=== PATIENT | male | born 1940 | race Caucasian/White ===

== ENCOUNTER → 2017-03-22 | Outpatient (CLI) | payer MEDICARE, OTHER ==
--- NOTE | 2017-03-22 15:59 | US ---
EXAMINATION: Limited pelvic ultrasound HISTORY: Swelling COMPARISON: None TECHNIQUE: Grayscale and color Doppler images obtained of the pelvis within the region of concern. FINDINGS: There is no abnormal subcutaneous mass or fluid collection. No abnormal color Doppler flow . No skin thickening. IMPRESSION: No sonographic abnormality is noted within the lower right pelvic region, in the area of concern.
== END ==
LOC: MW.US 13:14
PROVIDERS: ATTEND Nurse Practitioner Family
DX: R60.9 Edema, unspecified (principal)
CPT/HCPCS: 76857; 76857-26

== ENCOUNTER → 2017-04-01 | Outpatient (CLI) | payer MEDICARE, OTHER | LOC: MW.CHGS 08:00 | PROVIDERS: ATTEND Surgery | DX: K40.90 Unilateral inguinal hernia, without obstruction or gangrene, not specified as recurrent (principal) | CPT/HCPCS: 99203 ==

== ENCOUNTER 2017-06-17 06:25 | Day surgery (SDC) | payer MEDICARE, OTHER ==
[~2017-06-17 06:25] MED LIST: Lactated Ringers 1,000 ML IV SCH; Sodium Chloride 0.9% 10 ML Syringe FLUSH PRN; Sodium Chloride 0.9% 2.5 ML Syringe FLUSH PRN; ceFAZolin 2 GM in Premix Bag 1 BAG IV ONE; ceFAZolin 2 GM in Premix Bag 1 BAG IV SCH
[2017-06-17] MEDS ORDERED: Bupivacaine 0.5% 10 ML SDV ONE (07:14)
[2017-06-17] MEDS ORDERED: ceFAZolin 1 GM Vial ONE (07:15)
--- NOTE | 2017-06-17 07:31 | PCM.PREANE ---
Preanesthetic Assessment - Anesthesia/Transfusion/Family Hx Anesthesia History: Prior Anesthesia Without Reaction Family History of Anesthesia Reaction: No Transfusion History: No Prior Transfusion(s) - Review of Systems General: No Symptoms Pulmonary: Shortness of Breath Cardiovascular: No Symptoms Gastrointestinal: No Symptoms Neurological: No Symptoms Other: Reports: Easy Bleeding - Physical Assessment NPO Status Date: 06/16/17 NPO Status Time: 18:00 O2 Sat by Pulse Oximetry: 96 Respiratory Rate: 16 Vital Signs: Last Vital Signs Temp 36.5 C 06/17/17 06:27 Pulse 57 L 06/17/17 06:27 Resp 16 06/17/17 06:27 BP 125/73 06/17/17 06:27 Pulse Ox 96 06/17/17 06:27 Height: 1.69 m Weight: 68.946 kg ASA Class: 3 Mental Status: Alert & Oriented x3 Airway Class: Mallampati = 2 Dentition: Reports: Partial ROM/Head Extension: Full Lungs: Clear to Auscultation, Normal Respiratory Effort Cardiovascular: Regular Rate, Regular Rhythm - Allergies Allergies/Adverse Reactions: Allergies Allergy/AdvReac Type Severity Reaction Status Date / Time Tetanus Vaccines and Toxoid Allergy throat Verified 05/30/17 08:49 swells - Anesthesia Plan Pre-Op Medication Ordered: None - Acknowledgements Anesthesia Type Planned: Spinal Pt an Appropriate Candidate for the Planned Anesthesia: Yes Alternatives and Risks of Anesthesia Discussed w Pt/Guardian: Yes Pt/Guardian Understands and Agrees with Anesthesia Plan: Yes PreAnesthesia Questionnaire HEENT History: Reports: Other (See Below) Other HEENT History: reading glasses, top partial Respiratory History: Reports: COPD, Other (See Below) Other Respiratory History: uses O2 at night Musculoskeletal History: Reports: Fracture Other Musculoskeletal History: hx fx back and ribs Oncologic (Cancer) History: Reports: Basal Cell Carcinoma Other Oncologic History: basal cell from inner lip - Past Surgical History Head Surgeries/Procedures: Reports: None HEENT Surgical History: Reports: Cataract Surgery, Oral Surgery Other HEENT Surgeries/Procedures: basal cell carcinoma removed from inner lip - SUBSTANCE USE Smoking Status *Q: Former Smoker Recreational Drug Use History: No - HOME MEDS Home Medications: Home Meds Albuterol Sulfate 1 dose NEB BID 05/30/17 [History] Calcium Carb/Magnesium Oxid/D3 [Calcium Magnesium + D] 1 tab PO DAILY 05/30/17 [ History] Docusate Sodium 1 tab PO BID 05/30/17 [History] Flaxseed Oil 1 tab PO ASDIRECTED 05/30/17 [History] Fluticasone/Salmeterol [Advair Diskus 250-50] 1 inh INH ASDIRECTED 05/30/17 [ History] Gluc HCl/Csa/Eladio Hy/Hyalur Ac [Glucosamine Chondroitin] 1 tab PO DAILY [History] Melatonin 3 mg PO BEDTIME PRN 05/30/17 [History] Multimineral Plus 1 tab PO DAILY 05/30/17 [History] Sennosides [Senna Laxative] 1 tab PO ASDIRECTED 05/30/17 [History] Umeclidinium [place] [Incruse Ellipta] 2 puff INH ASDIRECTED 05/30/17 [History] Incruse Ellipta 62.5 mg INH DAILY 06/14/17 [History] Warfarin Sodium 1 mg PO DAILY 06/14/17 [History] Warfarin Sodium 5 mg PO DAILY 06/14/17 [History] - CURRENT (IN HOUSE) MEDS Current Meds: Current Medications Lactated Ringer's (Ringers, Lactated) 1,000 mls @ 125 mls/hr IV ASDIRECTED [facility] Last Admin: 06/17/17 06:50 Dose: 125 mls/hr Cefazolin Sodium/Dextrose 2 gm (/ Premix) 50 mls @ 100 mls/hr IV ONETIME CARLOS Sodium Chloride (Saline Flush) 10 ml FLUSH ASDIRECTED PRN PRN Reason: Keep Vein Open Sodium Chloride (Saline Flush) 2.5 ml FLUSH ASDIRECTED PRN PRN Reason: Keep Vein Open Discontinued Medications Bupivacaine HCl (Sensorcaine-Mpf 0.5%) Confirm Administered Dose 20 ml .ROUTE .STK-MED ONE Stop: 06/17/17 07:15 Cefazolin Sodium (Ancef) Confirm Administered Dose 1 gm .ROUTE .STK-MED ONE Stop: 06/17/17 07:16 Lactated Ringer's (Ringers, Lactated) 1,000 mls @ 125 mls/hr IV ASDIRECTED [facility] Cefazolin Sodium/Dextrose 2 gm (/ Premix) 50 mls @ 100 mls/hr IV ONETIME ONE Stop: 05/31/17 16:34 Sodium Chloride (Saline Flush) 10 ml FLUSH ASDIRECTED PRN PRN Reason: Keep Vein Open Sodium Chloride (Saline Flush) 2.5 ml FLUSH ASDIRECTED PRN PRN Reason: Keep Vein Open
[2017-06-17] MEDS ORDERED: Phenylephrine/Normal Saline 100 MCG/ML 10 ML Syringe ONE (08:31)
[2017-06-17] MEDS ORDERED: Midazolam 1 MG/ML 2 ML SDV ONE (08:39)
[2017-06-17] MEDS ORDERED: fentaNYL 100 MCG/2 ML SDV ONE (08:39)
[2017-06-17] MEDS ORDERED: Propofol 200 MG/20 ML SDV ONE (08:39)
[2017-06-17] MEDS ORDERED: Lidocaine 2% 5 ML SDV ONE (08:39)
[2017-06-17] MEDS ORDERED: Ondansetron 4 MG/2 ML SDV ONE (09:07)
[2017-06-17] MEDS ORDERED: fentaNYL 100 MCG/2 ML SDV IVPUSH PRN (09:13)
[2017-06-17] MEDS ORDERED: Ondansetron 4 MG/2 ML SDV IVPUSH ONE (09:13)
[2017-06-17] MEDS ORDERED: Acetaminophen 1,000 MG in Premix Bag 1 BAG IV ONE (09:15)
--- NOTE | 2017-06-17 09:46 | PCM.POSTAN ---
POST ANESTHESIA ASSESSMENT - MENTAL STATUS Mental Status: Alert, Oriented - RESPIRATORY Respiratory Status: Respiratory Rate WNL, Airway Patent, O2 Saturation Stable - CARDIOVASCULAR CV Status: Pulse Rate WNL, Blood Pressure Stable - GASTROINTESTINAL GI Status: No Symptoms - POST OP HYDRATION Hydration Status: Adequate & Stable
--- NOTE | 2017-06-17 12:31 | OR ---
SURGEON: Matias London M.D. DATE OF PROCEDURE: 06/17/2017 OPERATION PERFORMED: Repair of right inguinal hernia. ANESTHESIA: Spinal. ASA CLASSIFICATION: III. PREOPERATIVE DIAGNOSIS: Reducible right inguinal hernia. POSTOPERATIVE DIAGNOSIS: Reducible right inguinal hernia. ESTIMATED BLOOD LOSS: 10 mL. INTRAOPERATIVE FLUID REPLACEMENT: 950 mL of crystalloid. DESCRIPTION OF PROCEDURE: The patient was taken to the operating room and initially placed on the operating table in the supine position. Surgical site had been marked prior to the patient entering the operating room. Time-out was called for appropriate identification of the patient and procedure. Spinal anesthesia was induced. The patient was again returned to the supine position. The abdomen was then prepped with DuraPrep solution. Sterile drapes were applied. The skin incision was marked out in the right inguinal crease. The skin incision was then made and deepened through the subcutaneous tissue with electrocautery. Bleeding sites were electrocoagulated. The external oblique fascia was extremely attenuated. The cord was mobilized and encircled with a Gorge drain. The hernia sac was identified and was able to be dissected away from the cord and reduced. A small Bard PerFix plug and patch was brought to the operating table and soaked in 1% Ancef solution. The plug was placed into the internal ring and secured with 0 Ethibond suture. The patch was then placed over this and repair carried out from medial to lateral beginning at Martinez's ligament, transitioning to the inguinal ligament inferiorly and to the transversalis fascia superiorly. The wings of the patch were brought around the cord and secured again with 0 Ethibond suture. All sutures with the exception of the lateral suture were secured. The patient was able to cough. The repair was felt to be solid. The lateral suture was then secured. The wound was irrigated with 1% Ancef solution. The cord was returned to its anatomic location. The external oblique fascia was closed with 3-0 Polysorb. The subcutaneous tissue was infiltrated with 10 mL of 0.5% Marcaine solution. The Bonnie's fascia was reapproximated with 3-0 Vicryl in a running fashion and the skin edges were reapproximated with subcuticular 4-0 Monocryl reinforced with Steri-Strips. Sterile Tegaderm pad was placed as a dressing. Sponge, needle, and instrument counts were all correct. The patient tolerated the procedure well and was taken to recovery room in stable condition. JAYA / MACY /[id number]
--- NOTE | 2017-06-17 13:56 | PCM48HPAN ---
Post Anesthesia Note - EVALUATION WITHIN 48HRS OF ANESTHETIC Vital Signs in Normal Range: Yes Patient Participated in Evaluation: Yes Respiratory Function Stable: Yes Airway Patent: Yes Cardiovascular Function Stable: Yes Hydration Status Stable: Yes Pain Control Satisfactory: Yes Nausea and Vomiting Control Satisfactory: Yes Mental Status Recovered: Yes - COMMENTS/OBSERVATIONS Free Text/Narrative:: Spinal block has resolved. Given prescribed tylenol#3 and ready to walk out for home ride.
[2017-06-17 14:21] VITALS: BP 100/58
== END 2017-06-17 15:18 | disposition home or self-care (01) ==
LOC: MW.SDS 06:25
PROVIDERS: ATTEND Surgery
PROC: 0YU50JZ Supplement Right Inguinal Region with Synthetic Substitute, Open Approach (ICD-10-PCS; principal; 2017-06-17)
DX: K40.90 Unilateral inguinal hernia, without obstruction or gangrene, not specified as recurrent (principal); J44.9 Chronic obstructive pulmonary disease, unspecified; Z99.81 Dependence on supplemental oxygen; Z85.828 Personal history of other malignant neoplasm of skin; Z87.891 Personal history of nicotine dependence; Z98.890 Other specified postprocedural states; Z79.899 Other long term (current) drug therapy; Z79.01 Long term (current) use of anticoagulants; Z88.7 Allergy status to serum and vaccine
CPT/HCPCS: 36415; 49505; 85610; J0690; J2250; J2405; J3010; J7120; 00830; C1781; J2704